=== PATIENT | female | born 2005 | race Caucasian/White ===

== ENCOUNTER 2025-07-26 09:59 | Outpatient (REF) | payer OTHER, SELFPAY ==
--- NOTE | ~2025-07-26 | XR_ITS ---
EXAMINATION: XR SCOLIOSIS CLINICAL INFORMATION: Idiopathic scoliosis COMPARISON: None available. TECHNIQUE: A single view of the thoracolumbar spine is obtained. FINDINGS: There are no intrinsic vertebral anomalies. No fracture or dislocation. Normal disc spaces. Very minimal thoracic scoliosis measuring 2 degrees convex to the left in the proximal thoracic spine with apex at T3-4 and measuring 3 degrees in the mid thoracic spine convex to the right with apex at T7-8. Paraspinal soft tissues are normal. XR/XR scoliosis survey IMPRESSION: Very minimal thoracic scoliosis. Electronically signed by: Alicia Salvador MD 07/26/2025 10:48 AM EDT
--- OUTSIDE RECORDS SUMMARY | 2025-07-26 11:55 | XMS_ITS | Clinical Summary ---
Author Organization [facility] Address [address] [place] [address] Care Team Providers Care Crap Shooter Name Role Phone Kelli Pace MD Primary Care Provider [phone] Allergies Active Allergy Reactions Criticality Noted Date Comments Cefprozil Hives Medium 10/12/2017 Cortisone Hives Medium 05/10/2019 Doxycycline Hives Medium 10/12/2017 Immediate hives while on treatment for acne Latex Hives Medium 12/14/2023 Penicillin G Hives Medium 10/12/2017 Medications Medication Sig Dispensed Refills Start Date End Date Status levocetirizine (XYZAL) 5 MG tablet Take 1 tablet (5 mg total) by mouth every evening. 0 12/03/2023 Active FLUoxetine (PROzac) 10 MG capsule Take 3 capsules (30 mg total) by mouth daily. 0 11/18/2023 Active EPINEPHrine 0.3 MG/0.3ML SOAJ 1 Device. 0 05/10/2019 Active Active Problems Problem Noted Date Diagnosed Date Iron deficiency anemia 12/13/2023 Social History Tobacco Use Types Packs/Day Years Used Date Smoking Tobacco: Never Assessed Sex and Gender Information Value Date Recorded Sex Assigned at Not on file Gender Identity Not on file Sexual Orientation Not on file Job Start Date Occupation Industry Not on file Not on file Not on file Last Filed Vital Signs Vital Sign Reading Time Taken Comments Blood Pressure 101/64 12/20/2023 1:04 PM EDT Pulse 71 12/20/2023 1:04 PM EDT Temperature 36.6 C (97.9 F) 12/20/2023 1:04 PM EDT Respiratory Rate 18 12/20/2023 1:04 PM EDT Oxygen Saturation 100% 12/20/2023 1:04 PM EDT Inhaled Oxygen Concentration - - Weight - - Height - - Body Mass Index - - Plan of Treatment Health Maintenance Due Date Last Done Comments Hepatitis B Vaccines (1 of 3 - 3-dose series) 2003 Hepatitis C Screening 2003 COVID-19 Vaccine (#1) 2003 Depression Screening 2015 Gonorrhea and Chlamydia Screening 02/03/2016 Preventative Health Evaluation 2021 DTap / Tdap / Td (1 - Tdap) 2022 Cervical Cancer Screening (P ap Smear) 02/03/2024 Influenza Vaccine (#1) 2025 Pneumococcal Vaccine Aged Out No long er eligible based on patient's age to complete this topic RSV Ped < 20 months Aged Out No longe r eligible based on patient's age to complete this topic Care Teams Crap Shooter Relationship Specialty Start Date End Date Kelli Pace MD [address] [address] PCP - General Internal Medicine 12/01/23
--- OUTSIDE RECORDS SUMMARY | 2025-07-26 11:55 | XMS_ITS | Clinical Summary ---
Author Organization [facility] Address [address] [place] [address] Phone Care Team Providers Care Information Analyst Name Role Phone Kelli Pace MD Primary Care Provider Surgical History Surgery Date Site/Laterality Comments EYE SURGERY - 2006 PROCEDURE: HISTORICAL EYE SURGERY Medical History Medical History Date Comments Idiopathic urticaria 10/12/2017 DX:Idiopath ic urticaria Contact dermatitis 10/12/2017 DX:Contact de rmatitis Allergic angioedema 10/12/2017 DX:Allergic angioedema Acne 10/12/2017 DX:Acne Chest pain 10/12/2017 DX:Chest pain; C OMMENT: Initial evaluation by cardiology, normal 24 hour holter. Now with 30 day holter Food allergy 07/05/2018 DX:Food allergy; COMMENT: Symptoms following ingestion of certain juices: may be due to additive. Strict avoidance of those brands. EpiPen Family History Medical History Relation Name Comments YOVANNY disease Mother Heart disease Relation Name Status Comments Mother Social History Tobacco Use Types Packs/Day Years Used Date Smoking Tobacco: Never Smokeless Tobacco: Never Alcohol Use Standard Drinks/Week Comments No 0 (1 standard drink = 0.6 oz pur e alcohol) Comments Unknown Sex and Gender Information Value Date Recorded Sex Assigned at Not on file Legal Sex Female 6:44 AM EST Gender Identity Not on file Sexual Orientation Not on file Obstetrics History Last Filed Vital Signs Vital Sign Reading Time Taken Comments Blood Pressure 115/69 07/15/2022 2:52 PM EDT R A rm Pulse - - Temperature - - Respiratory Rate - - Oxygen Saturation - - Inhaled Oxygen Concentration - - Weight 49.4 kg (109 lb) 07/15/2022 2:52 PM EDT Height 154.9 cm (5' 1 ) 07/15/2022 2:52 PM EDT Body Mass Index 20.6 07/15/2022 2:52 PM EDT Plan of Treatment Health Maintenance Due Date Last Done Comments Gonorrhea/Chlamydia Screening 2003 HPV Vaccines (1 - 3-dose series) 2018 Meningococcal B Vaccine (1 o f 2 - Standard) 2019 DTaP,Tdap,and Td Vaccines (1 - Tdap) 2022 Hepatitis B Vaccines (1 of 3 - 19+ 3-dose series) 2022 HIV Screening 09/06/2022 Hepatitis C Screening 09/06/2022 Social Influencers of Health Screening 09/06/2022 Cervical Cancer Screening: P ap Smear 02/03/2024 Depression Screening 10/04/2024 COVID-19 Vaccine (1 - 2023-2 5 season) 2025 Influenza Vaccine (#1) 2025 RSV Immunization Adult Patie nts (1 - 1-dose 75+ series) 2078 HIB Vaccines Aged Out No longer eligi ble based on patient's age to complete this topic Hepatitis A Vaccines Aged Out No long er eligible based on patient's age to complete this topic IPV Vaccines Aged Out No longer eligi ble based on patient's age to complete this topic MMR Vaccines Aged Out No longer eligi ble based on patient's age to complete this topic Meningococcal ACWY Vaccine Aged Out N o longer eligible based on patient's age to complete this topic Pneumococcal Vaccine: Pediat rics (0 to 5 Years) and At-Risk Patients (6 to 49 Years) Aged Out No longer eligible b ased on patient's age to complete this topic RSV Immunization Patients Un gissell 20 months Aged Out No longer eligible b ased on patient's age to complete this topic Varicella Vaccines Aged Out No longer eligible based on patient's age to complete this topic Care Teams Information Analyst Relationship Specialty Start Date End Date Kelli Pace MD PCP - General Internal Medicine 07/08/22
== END 2025-07-26 10:00 | disposition home or self-care (01) ==
LOC: HO.XRAY 09:59
PROVIDERS: PCP Internal Medicine; Visit Provider Internal Medicine
DX: M41.24 Other idiopathic scoliosis, thoracic region (principal)
CPT/HCPCS: 72082

== ENCOUNTER → 2025-07-26 10:25 | Outpatient (BNV) | payer OTHER, SELFPAY | PROVIDERS: PCP Internal Medicine; Visit Provider Radiology Diagnostic Radiology | DX: M41.24 Other idiopathic scoliosis, thoracic region (principal) | CPT/HCPCS: 72082 ==